=== PATIENT | female | born 1995 | race African-American/Black ===

== ENCOUNTER 2025-07-04 16:12 | Emergency (ER) | payer SELFPAY ==
--- OUTSIDE RECORDS SUMMARY | 2025-07-04 16:15 | XMS REPORT | Continuity of Care Document ---
Author Name Unknown Address [address] [phone] [facility] Address [address] [phone] Care Team Providers Care Metal Roofer Name Role Phone PCP, PATIENT DOES NOT HAVE A Primary Care Physic litzy Unavailable Venkat Chew Attending Clinician Unavailable Fortunato Choudhury Attending Clinician Unavailable Adama Goddard Attending Clinician Unavailable BESSY GREEN Attending Clinician Unavailable Physician, No Primary or Family Admitting Clinic litzy Unavailable Payers Payer Name Policy Type Policy Number Effective Date Expirati on Date Source Problems Condition Name Condition Details Condition Category Status Onset Date Resolution Date Last Treatment Date Treating Clinician Comments Source Abdominal pain Problem Active [facility] Anemia Problem Active [facility] Calculus of kidney Problem Active [facility] Dog bite Problem Active [facility] Low back pain Problem Active [facility] Sciatica Problem Active [facility] Allergies, Adverse Reactions, Alerts Allergy Name Allergy Type Status Severity Reaction(s) Onset Date Inactive Date Treating Clinician Comments Source No Known Allergie s DA Active U 02-14 00:00: 00 [facility] No Known Allergie s DA Active U 02-05 00:00: 00 [facility] No Known Drug Allergie s DA Active [facility] NO KNOWN ALLERGIE S Drug Class Active [facility] Social History Social Habit Start Date Stop Date Quantity Comments Source History of tobacco use [facility] Sex Assigned At 1995 00:00:00 1995 00:00:[address] [facility] Smoking Status Start Date Stop Date Source Current some day smoker 2024-08-09 22:40:00 [facility] Medications Ordered Medication Name Filled Medication Name Start Date Stop Date Current Medication? Ordering Clinician Indication Dosage Frequency Signature (SIG) Comments Components Source Cyclobenzap rine Hcl (Flexeril) 5 Mg TABLET Cyclobenzap rine Hcl (Flexeril) 5 Mg TABLET 2023-09 22:56: 00 Yes [address] [facility] Docusate Sodium Docusate Sodium 02-05 03:36: [address] [facility] Vital Signs Vital Name Observation Time Observation Value Comments S ource Oxygen saturation by Pulse oximetry 2024-08-09 23:18:00 98 /min [facility] BP Diastolic 2024-08-09 23:18:00 91 mm[Hg] [facility] Height 2024-08-09 22:40:00 177.398910 cm [facility] Weight 2024-08-09 22:40:00 158.677652 kg [facility] BMI (Body Mass Index) 2024-08-09 22:40:00 50.1 kg/m2 [facility] Oxygen saturation by Pulse oximetry 2024-06-25 14:15:00 97 /min [facility] Height 2024-06-25 14:15:00 177.724923 cm [facility] Weight 2024-06-25 14:15:00 161.595939 kg [facility] BMI (Body Mass Index) 2024-06-25 14:15:00 51.1 kg/m2 [facility] Oxygen saturation by Pulse oximetry 2023-02-05 03:55:00 98 /min [facility] BP Diastolic 2023-02-05 03:55:00 72 mm[Hg] [facility] Height 2023-02-05 01:02:00 177.248489 cm [facility] Weight 2023-02-05 01:02:00 129.941112 kg [facility] BMI (Body Mass Index) 2023-02-05 01:02:00 41.0 kg/m2 [facility] Encounters Start Date/Time End Date/Time Encounter Type Admission Type Attending [facility] Facility Care Department Encounter ID Source 2023-02-04 23:55:00 Inpatient [facility] [id number] [facility] 2024-08-09 22:56:00 2024-08-09 23:21:00 Departed Emergency Room [facility] [id number] [facility] 2024-08-09 21:56:00 2024-08-09 22:21:00 Emergency [facility] [id number] [facility] 2024-06-25 14:23:00 2024-06-25 14:59:00 Departed Emergency Room [facility] [id number] 62 [facility] 2024-06-25 13:23:00 2024-06-25 13:59:00 Emergency [facility] [id number] [facility] 2023-02-05 01:01:00 2023-02-05 03:55:00 Departed Emergency Room 1 Venkat Chew [facility] [id number] [facility] 2023-02-05 00:01:00 2023-02-05 02:55:00 Emergency [facility] [id number] [facility] 2022-02-14 09:52:00 2022-02-14 10:26:00 Emergency EM Fortunato Choudhury [facility] [id number] [facility] 2022-02-14 09:52:00 2022-02-14 10:26:00 Emergency EM Fortunato Choudhury [facility] KRISTEN [id number] 83 [facility] 2022-02-05 14:09:00 2022-02-05 19:50:00 Emergency EM Adama Goddard [facility] KRISTEN [id number] 91 [facility] 2022-02-05 14:09:00 2022-02-05 19:50:00 Emergency EM Adama Goddard [facility] [id number] [facility] 2016-06-26 16:08:19 2016-06-26 18:45:00 Emergency X BESSY GREEN [facility] ERT [id number] [facility] Results Test Description Test Time Test Comments Results Resul t Comments Source CT ABD/PEL WO CONTRAST-HOPD 2023-02-05 02:15:00 [facility] 1995 Sex: F [place] [address] Patient Name: JOSE SOTO MR #: [id number] : 1995 Age/Sex: 28/F Req #: [id number] Adm Physician: Ordered by: Venkat Chew MD Report #: [id number] Location: [facility] Room/Bed: Report: Diagnostic Imaging Report Status: Signed Procedure: [id number] HOPD/CT ABD/PEL WO CONTRAST-HOPD Exam Date: 02/05/23 Exam Time: 46 TECHNIQUE: CT of the abdomen and pelvis WITHOUT intravenous contrast and WITHOUT oral contrast. Dosemodulation, iterative reconstruction, and/or weight-based adjustment of the mA/kV was utilized to reduce the radiation dose to as low as reasonably achievable. INDICATION: Right-sided abdominal pain. COMPARISON: None. FINDINGS: ABSENCE OF INTRAVENOUS CONTRAST DECREASES SENSITIVITY FOR DETECTION OF FOCAL LESIONS AND VASCULAR PATHOLOGY. LOWER THORAX: Unremarkable. HEPATOBILIARY: No focal hepatic lesions. Gallbladder is unremarkable. No biliary ductal dilatation. SPLEEN: No splenomegaly. PANCREAS: No focal masses or ductal dilatation. ADRENALS: No adrenal nodules. KIDNEYS/URETERS: There is a nonobstructing 0.2 cm calculus in the lower pole right kidney. No hydroureteronephrosis . No exophytic mass. PELVIC ORGANS/BLADDER: Unremarkable. PERITONEUM/RETROPERIT ONEUM: No free air or fluid. LYMPH NODES: No lymphadenopathy. VESSELS: Unremarkable. GI TRACT: No distention or wall thickening. Partially seen appendix is normal. No secondary signs of appendicitis. BONES AND SOFT TISSUES: No acute osseous abnormality. Soft tissues are unremarkable. IMPRESSION: No acute abnormality on CT of the abdomen and pelvis without contrast. No obstructive uropathy. Nonobstructing 0.2 cm calculus in the lower pole of the right kidney. Signed by: Fidel Sexton on 02/05/2023 2:15 AM Dictated By: FIDEL SEXTON MD 6 Transcribed By: PSCRIDUSTIN on 02/05/23214 COPY TO: VENKAT CHEW MD - XR L-SPINE 2/3 VIEWS 2022-02-05 00:00:00 [facility] 1995 Sex: F FAX: Alex Koch NP [phone] [place]: St: REG Name: JOSE SOTO [facility] : 1995 Age/S: 27/F [address] [place] [address] Bl Unit #: [id number] Loc: [place] [address] Phys: Alex Patino NP Acct: [id number] Dis Date: Status: REG ER PHONE #: [phone] Exam Date: 02/05/20221650 FAX #: [phone] Reason: LUMBAR PAIN EXAMS: CPT CODE: [id number] XR L-SPINE 2/3 VIEWS 48685 PROCEDURE INFORMATION: Exam: XR Lumbosacral Spine Exam date and time: 02/05/2022 4:40 PM Age: 27 years old Clinical indication: Low back pain; Additional info: Lumbar pain TECHNIQUE: Imaging protocol: XR of the lumbosacral spine. Views: 2 or 3 views. COMPARISON: No relevant prior studies available. FINDINGS: The disc space heights are normal. There are no acute abnormalities of alignment. There is no radiographic evidence of acute fracture. There are no gross lytic or blastic lesions in the bones. There is no bony narrowing of the spinal canal. IMPRESSION: 1. There is no radiographic evidence of acute disease. 2. If there is continued clinical concern, then cross-sectional imaging correlation may be of value because they are more accurate modalities. at 1703 Reported and signed by: Wilmar Awan M.D. CC: Alex Patino NP Technologist: RT Bee(R) Trnscrd Date/Time/By: 02/05/2022 (5320) : By: [email or web address] Orig Print D/T: S: 02/05/2022 (1405) PAGE 1 Signed Report Notes Date/Time Note Provider Source 2022-02-14 10:12:00 ([facility]) EMERGENCY PROVIDER REPORT REPORT#:[id number] REPORT STATUS: Signed DATE:02/14/22 TIME: 101 PATIENT: JOSE SOTO UNIT #: [id number] ROOM/BED: AGE: 27 SEX: F PCP PHYS: No Primary or Family Physician SERVICE AUTHOR: Felix Amato HAND TOOL FILER * ALL edits or amendments must be made on the electronic/computer document * Felix Amato 02/14/22 1012: HPI-Back Pain Under 40 Free Text HPI Notes Free Text HPI Notes 27-year-old female presents complaint of low back pain. States that she was seen here 10 days ago for the same but that the symptoms have continued. Reports that the medication that was prescribed works but only for short period and then the pain returns. Has not attempted stretching but was questioning on whether it would help. Does not currently have a PCP and denies any significant past medical history. General Confirmed Patient Yes Initial Greet Date/Time 02/14/22 0958 Presentation Chief Complaint Pain, lumbar )( Sudden in Onset? Yes Review of Systems ROS Statements All systems rev neg except as marked. Focused Review of Systems Musculoskeletal Reports: Lumbar pain. Past Medical History - Adult Stated Complaint LOW BACK PAIN Allergies Coded Allergies: No Known Allergies (02/14/22) Home Medications Active Scripts CYCLOBENZAPRINE (FLEXERIL) 10 MG PO Q8H PRN PRN MUSCLE SPASMS/PAIN CYCLOBENZAPRINE (FLEXERIL) 10 MG PO Q8H PRN PRN MUSCLE SPASMS/PAIN #15 TABS Prov: 02/05/22 NAPROXEN EC (NAPROSYN-EC) 500 MG PO BID PRN PRN PAIN NAPROXEN EC (NAPROSYN-EC) 500 MG PO BID PRN PRN PAIN #20 TABS Prov: 02/05/22 Calculated Suicide Risk (nurs) No risk Smoking status: Smoking status for patients 13 years old or older: Unknown,if ever smoked Physical Exam Vital Signs Vital Signs First Documented: Result Date Time Pulse Ox 100 02/14 1002 B/P 108/70 02/14 1002 B/P Mean 82 02/14 1002 O2 Delivery Room air 02/14 1002 Temp 97.9 02/14 1002 Pulse 85 02/14 1002 Resp 18 02/14 1002 Last Documented: Result Date Time Pulse Ox 100 02/14 1002 B/P 108/70 02/14 1002 B/P Mean 82 02/14 1002 O2 Delivery Room air 02/14 1002 Temp 97.9 02/14 1002 Pulse 85 02/14 1002 Resp 18 02/14 1002 Review of Vital Signs Reviewed Free Text PE Notes Free Text PE Notes Physical Exam General/Const General/Const Awake, Alert, No acute distress, morbidly obese MS Head Head Atraumatic, Normocephalic Eyes Eyes Atraumatic, PERRL Ears/Nose/Throat Ears/Nose/Throat Atraumatic, Airway patent, Mucous membranes moist MS Neck Neck Atraumatic, Supple Resp/Chest Respiratory/Chest Atraumatic, No respiratory distress MS Back Back Atraumatic, tenderness over the left lower lumbar paraspinal muscle into the left SI joint Skin Skin Atraumatic, Color NL, No rash Neurologic Neurologic Oriented X3, Speech NL Psychiatric Psychiatric Affect NL, Mood NL Re-Evaluation MDM Re-Evaluation/Progress Re-Evaluation/Progress Text/Dict Note We will Rx medication for symptom relief and advised she will need to obtain a PCP but given other information such as care coordination manager and PM R. ED Course Medication(s) Ordered Medication(s) Ordered: Central Nervous System Agents Sig/Sapna Start time Last Medication Dose Route Stop Time Status Admin Hydrocodone Bitart/ 1 TAB X1ED STA 02/14 1005 CAN Acetaminophen PO 02/14 1006 Patient Discharge Departure Vital Signs/Condition Vital Signs First Documented: Result Date Time Pulse Ox 100 02/14 1002 B/P 108/70 02/14 1002 B/P Mean 82 02/14 1002 O2 Delivery Room air 02/14 1002 Temp 97.9 02/14 1002 Pulse 85 02/14 1002 Resp 18 02/14 1002 Last Documented: Result Date Time Pulse Ox 100 02/14 1002 B/P 108/70 02/14 1002 B/P Mean 82 02/14 1002 O2 Delivery Room air 02/14 1002 Temp 97.9 02/14 1002 Pulse 85 02/14 1002 Resp 18 02/14 1002 All vital signs available at the time of this entry have been reviewed. Condition Improved Clinical Impression Clinical Impression Primary Impression: Sciatica Disposition Decision Discharge )( Discharged to Home Yes )( Time 1015 )( Date 02/14/22 Discharge/Care Plan Counseled Regarding Diagnosis, Prescriptions, Need for follow-up, When to return to ED (Auto) Prescriptions Current Visit Scripts LIDOCAINE (LIDODERM 5%) 1 PATCH TRANSDERM DAILY LIDOCAINE (LIDODERM 5%) 1 PATCH TRANSDERM DAILY #30 PATCHES DICLOFENAC SODIUM (DICLOFENAC SODIUM 1%) 1 APPLIC TOPICAL QID DICLOFENAC SODIUM (DICLOFENAC SODIUM 1%) 1 APPLIC TOPICAL QID #100 GM Patient Instructions ED Sciatica Referrals Provider Referral: Ian Villavicencio MD Follow-Up: Call for appointment Address: [address] [place] [address] Provider Referral: Eros Srinivasan MD Follow-Up: Call for appointment Address: [address] [place] [address] Departure Forms [place] PCP LIST Discharge Note I have spoken with the patient and/or caregivers. I have explained the patient's condition, diagnoses and treatment plan based on the information available to me at this time. I have answered the patient's and/or caregiver's questions and addressed any concerns. The patient and/or caregivers have as good an understanding of the patient's diagnosis, condition and treatment plan as can be expected at this point. The vital signs have been stable. The patient's condition is stable and appropriate for discharge from the emergency department. The patient will pursue further outpatient evaluation with the primary care physician or other designated or consulting physician as outlined in the discharge instructions. The patient and/or caregivers are agreeable to this plan of care and follow-up instructions have been explained in detail. The patient and/or caregivers have received these instructions in written format and have expressed an understanding of the discharge instructions. The patient and/or caregivers are aware that any significant change in condition or worsening of symptoms should prompt an immediate return to this or the closest emergency department or a call to 911. Fortunato Choudhury. 02/14/22 1021: Patient Discharge Departure Supervising Physician Note MidLv Saw Pt Alone I have reviewed the PA/HAND TOOL FILER's note and plan of care. I was available for consultation as needed at all times during the patient's visit in the emergency department. I agree with the clinical impression, plan and disposition. at 1021 at 1036 [facility] #:[id number] END OF REPORT [facility] 2022-02-05 15:34:00 ([facility]) EMERGENCY PROVIDER REPORT REPORT#:[id number] REPORT STATUS: Signed DATE:02/05/22 TIME: 1533 PATIENT: JOSE SOTO UNIT #: [id number] ROOM/BED: AGE: 27 SEX: F PCP PHYS: No Primary or Family Physician SERVICE AUTHOR: Alex Patino HAND TOOL FILER * ALL edits or amendments must be made on the electronic/computer document * Alex Patino 02/05/22 1534: HPI-Back Pain Under 40 General Initial Greet Date/Time 02/05/22 1420 Provider in Triage Greet Note I have greeted and performed a focused rapid initial assessment of this patient. A comprehensive ED assessment and evaluation of the patient, analysis of all test results, and completion of the medical decision-making process will be conducted by additional ED providers. MSE Not Complete The medical screening exam is not complete. Further evaluation and/or treatment is required. The patient will be re-directed to the emergency department. Free Text HPI Notes Free Text HPI Notes This 27-year-old female presents to ED with complaint of bilateral lumbar pain that radiates down the left leg to posterior thigh. Is exacerbated by lumbar extension. Denies known injury but does report that she lifts quite often at work. Reports pain began gradually last week but has worsened in the previous 2 to 3 days. Denies associated symptoms. KDA Past Medical History - Adult Stated Complaint BACK PAIN Allergies Coded Allergies: No Known Allergies (02/05/22) Smoking status: Smoking status for patients 13 years old or older: Never Smoker Physical Exam Vital Signs Vital Signs First Documented: Result Date Time Pulse Ox 98 02/05 1416 B/P 142/81 02/05 1416 B/P Mean 101 02/05 1416 O2 Delivery Room air 02/05 1416 Temp 36.2 02/05 1416 Pulse 89 02/05 1416 Resp 16 02/05 1416 Last Documented: Result Date Time Pulse Ox 98 02/05 1416 B/P 142/81 02/05 1416 B/P Mean 101 02/05 1416 O2 Delivery Room air 02/05 1416 Temp 36.2 02/05 1416 Pulse 89 02/05 1416 Resp 16 02/05 1416 Free Text PE Notes Free Text PE Notes Patient is AAOx3, ambulatory. NAD noted at this time. There is mild bilateral TTP to lumbar area. Re-Evaluation MDM ED Course Medication(s) Ordered Medication(s) Ordered: Autonomic Drugs Sig/Sapna Start time Last Medication Dose Route Stop Time Status Admin Cyclobenzaprine HCl 10 MG X1ED STA 02/05 1737 DC PO 02/05 1738 Central Nervous System Agents Sig/Sapna Start time Last Medication Dose Route Stop Time Status Admin Hydrocodone Bitart/ 1 TAB X1ED STA 02/05 1538 DC / Acetaminophen PO 02/05 1539 1606 Eye, Ear, Nose And Throat (Een Sig/Sapna Start time Last Medication Dose Route Stop Time Status Admin Dexamethasone Sodium 8 MG X1ED STA 02/05 1804 DC Phosphate IM 02/05 1805 Patient Discharge Departure Vital Signs/Condition Vital Signs First Documented: Result Date Time Pulse Ox 98 02/05 1416 B/P 142/81 02/05 1416 B/P Mean 101 02/05 1416 O2 Delivery Room air 02/05 1416 Temp 36.2 02/05 1416 Pulse 89 02/05 1416 Resp 16 02/05 1416 Last Documented: Result Date Time Pulse Ox 98 02/05 1416 B/P 142/81 02/05 1416 B/P Mean 101 02/05 1416 O2 Delivery Room air 02/05 1416 Temp 36.2 02/05 1416 Pulse 89 02/05 1416 Resp 16 02/05 1416 All vital signs available at the time of this entry have been reviewed. Macey Gonzales 02/05/22 1840: HPI-Back Pain Under 40 General Confirmed Patient Yes Presentation Chief Complaint Pain, lumbar Hx Obtained From Patient )( Sudden in Onset? No Free Text HPI Notes Free Text HPI Notes Agree with HPI above. Patient reports about 1 week ago she woke up and noticed pain to bilateral lumbar region that radiates to bilateral gluteus muscles. She notes today she attempted to stretch but feels as though it worsened her symptoms. 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 She has attempted [id number] Motrin with no relief. Denies any fever, flank pain, trauma to area or fall, abdominal pain, dysuria, hematuria, urinary frequency or urgency, bowel changes, incontinence, saddle anesthesia, numbness or tingling to bilateral lower extremities, or any other symptoms at this time. Past Medical History - Adult Pt reports no significant: Past medical history, Past surgical history Physical Exam Focused PE General/Const General/Const Awake, Alert, No acute distress, Well appearing, Well developed , Well hydrated, Well nourished, Cooperative, Not toxic appearing MS Neck Neck Atraumatic, Supple, Full range of motion, No swelling, Non-tender, No midline vertebral tend Resp/Chest Respiratory/Chest Breath sounds NL, No respiratory distress, No rales, No rhonchi, No wheezing Cardiovascular Cardiovascular Heart rate NL, Regular rhythm, Heart sounds NL, Peripheral circulation NL Abdomen/GI Abdomen/GI Soft, Non-tender, No guarding, No rebound MS Back Back No midline vertebral tend, No CVA tenderness Text/Dict Notes BL lower lumbar tenderness and gluteal tenderness. No midline vertebral spinal tenderness. MS Lower Extrem Lower Ext/Pelvis/MS Inspection NL, No swelling, Non-tender, No erythema, No deformity, Neurologic intact, Vascular intact Neurologic Neurologic Oriented X3, Speech NL Additional PE Skin Skin Warm, Dry, Intact Interpretation Diagnostics Lab Results Interpretation Results Recent Impressions: RADIOLOGY - XR L-SPINE 2/3 VIEWS 02/05 1651 Report Impression - Status: SIGNED Entered: 02/05/2022 1703 IMPRESSION: 1. There is no radiographic evidence of acute disease. 2. If there is continued clinical concern, then cross-sectional imaging correlation may be of value because they are more accurate modalities. Impression By: [email or web address] - Wilmar Awan M.D. Imaging Statement Radiographic studies reviewed and considered in the medical decision-making. Patient Discharge Departure Pt/Provider Handoff Handoff Note This patient's care has been transferred to and accepted by [ Aga - EDUARD @ 6510]. We discussed: the patient's chief complaint; labs and imaging that have been completed and those that are still pending; procedures that have been completed and those remaining to be done; any treatment provided and the patient's response to treatment; any significant change in condition; input from consultants if any; the treatment plan prior to the transfer of care. The accepting physician will follow up on all pending labs and imaging and make any necessary changes to the current impression and/or treatment plan. The accepting physician is now responsible for the patient's care and final disposition. Aga Loaiza 02/05/221858: HPI-Back Pain Under 40 Presentation Location Paraspinal lumbar Quality Painful Radiation Leg L, above knee. Migration/Movement None Severity: Onset Moderate Severity: Current Severe Risk-Back Pain Under 40 Risk Stratification Thoracic Aortic Dissection Risk factors reviewed Epidural Hematoma Risk factors reviewed Epidural Abscess Risk factors reviewed Review of Systems Focused Review of Systems Constitutional Denies: Chills, Fever, Lethargy. Respiratory Denies: Cough, non-productive, Cough, productive, Shortness of breath. Cardiovascular Denies: Chest pain, Syncope. GI Denies: Abdominal pain, Diarrhea, Nausea, Vomiting. Female Denies: Dysuria, Flank pain, Pelvic pain. Musculoskeletal Reports: Back pain, Extremity pain. Hematologic Denies: Bleeding, Bruising. Neurologic Denies: Bladder dysfunction, Bowel dysfunction, Change LOC, Dizziness, Focal weakness, Generalized weakness, Headache, Lightheaded, Numbness, Slurred speech, Tingling. Additional Review of Systems Psychiatric Denies: Change mental status, Confusion, Depression, Suicidal ideation. Past Medical History - Adult Review of Nursing Notes Rev avail, and agree Pt reports no significant: Past medical history, Past surgical history Physical Exam Vital Signs Review of Vital Signs Reviewed, Vital signs normal Focused PE General/Const General/Const Awake, Alert, Well appearing MS Neck Neck Atraumatic, Supple, No meningismus, Full range of motion, No swelling, Non-tender, No midline vertebral tend, No masses, No crepitus Resp/Chest Respiratory/Chest Breath sounds NL, Breath sounds = bilat, No respiratory distress, No rales, No rhonchi, No wheezing Cardiovascular Cardiovascular Heart rate NL, Regular rhythm, Heart sounds NL, Peripheral circulation NL Abdomen/GI Abdomen/GI Soft, Non-tender, No guarding, No rebound MS Lower Extrem Lower Ext/Pelvis/MS Inspection NL, No swelling, Non-tender, No erythema, No deformity, Neurologic intact, Vascular intact, No edema, Gait NL Neurologic Neurologic Oriented X3, Speech NL, No motor deficits, No sensory deficits, Reflexes equal bilat, Memory NL, Gait NL Additional PE MS Head Head Atraumatic, Normocephalic Skin Skin Atraumatic, Color NL, No rash, Warm, Dry, Intact, Turgor NL Psychiatric Psychiatric Affect NL, Mood NL, Not suicidal, Cognitive function NL, Judgment /insight NL, Thought content NL Interpretation Diagnostics Lab Results Interpretation Imaging Statement Radiographic studies reviewed and considered in the medical decision-making. Re-Evaluation MDM Re-Evaluation/Progress Re-Evaluation/Progress Time of Re-Eval 1906 Re-Eval Status Improved Eval Following Treatment Pt. feels better, Condition improved Pain Re-Evaluation Pain improved Exam Post Tx - General Active, Alert, Appears non-toxic, Appears well, Vital signs stable, Capillary refill normal, Hydration normal Exam Post Tx - Sys Review Lungs clear, Abdomen soft, Abdomen nontender Plan Post Re-Eval Plan discharge Back Pain MDM Note The patient presented with acute back pain. The patient is now resting comfortably and feels better, is alert, talkative, interactive and in no distress. The repeat examination is unremarkable and benign. The patient is neurologically intact and is ambulatory in the ED. The patient has no fever, no bowel or bladder incontinence, no saddle anesthesia, and is otherwise alert and well-appearing. The history, physical examination, and diagnostics (if any) do not suggest the presence of acute spinal epidural abscess, acute spinal epidural bleed, cauda equina syndrome, abdominal aortic aneurysm, aortic dissection or other process requiring further testing, treatment or consultation in the emergency department. The vital signs have been stable. The patient's condition is stable and appropriate for discharge. The patient will pursue further outpatient evaluation with the primary care physician or other designated or consulting physician as indicated in the discharge instructions. TAD MDM Note There is no historical, physical exam, laboratory or imaging data that would suggest a need to consider or further evaluate the patient for thoracic aortic dissection at this time. I am no longer considering thoracic aortic dissection in the differential diagnosis. The timing of the onset of pain and the pain radiation pattern are not consistent with dissection. There has been no movement of pain from the chest to the back or to the abdomen, which would be consistent with a dissection process. The analysis of risks that would predispose to dissection does not indicate a need to further pursue the diagnosis. The patient 's vital signs have been stable, there is no apparent aortic murmur, and there is either 1) no gross radial pulse differential and/or 2) no significant blood pressure differential between the right and left arms. In addition, the laboratory and imaging results are not consistent with aortic dissection. In particular, the chest x-ray does not meet any of the criteria for aortic dissection. Patient Discharge Departure Vital Signs/Condition Condition Stable, Improved Clinical Impression Clinical Impression Primary Impression: Back pain Disposition Decision Discharge )( Discharged to Home Yes )( Time 190 )( Date 02/05/22 Discharge/Care Plan Counseled Regarding Diagnosis, Imaging studies, Prescriptions, Need for follow- up, When to return to ED (Auto) Prescriptions Current Visit Scripts CYCLOBENZAPRINE (FLEXERIL) 10 MG PO Q8H PRN PRN MUSCLE SPASMS/PAIN CYCLOBENZAPRINE (FLEXERIL) 10 MG PO Q8H PRN PRN MUSCLE SPASMS/PAIN #15 TABS NAPROXEN EC (NAPROSYN-EC) 500 MG PO BID PRN PRN PAIN NAPROXEN EC (NAPROSYN-EC) 500 MG PO BID PRN PRN PAIN #20 TABS Prescriptions Reviewed Risks, Benefits, Alternative treatment Patient Instructions ED Back and Neck Pain, General, ED Back Exercises, Lumbar, ED Back Sprain/Strain Discharge Note I have spoken with the patient and/or caregivers. I have explained the patient's condition, diagnoses and treatment plan based on the information available to me at this time. I have answered the patient's and/or caregiver's questions and addressed any concerns. The patient and/or caregivers have as good an understanding of the patient's diagnosis, condition and treatment plan as can be expected at this point. The vital signs have been stable. The patient's condition is stable and appropriate for discharge from the emergency department. The patient will pursue further outpatient evaluation with the primary care physician or other designated or consulting physician as outlined in the discharge instructions. The patient and/or caregivers are agreeable to this plan of care and follow-up instructions have been explained in detail. The patient and/or caregivers have received these instructions in written format and have expressed an understanding of the discharge instructions. The patient and/or caregivers are aware that any significant change in condition or worsening of symptoms should prompt an immediate return to this or the closest emergency department or a call to 911. Adama Goddard 02/08/22 1823: Patient Discharge Departure Supervising Physician Note MidLv Saw Pt Alone I have reviewed the PA/HAND TOOL FILER's note and plan of care. I was available for consultation as needed at all times during the patient's visit in the emergency department. I agree with the clinical impression, plan and disposition. at 1925 at [phone] at 1823 at [phone] RPT #:[id number] END OF REPORT [facility]
[2025-07-04 17:22] LABS: Sqamous Epithelial <5 /HPF (None Seen); Urine Culture Reflex Order NOT NEEDED; Urine Microscopic Reflex YN ORDER UMIC
[2025-07-04 17:37] LABS: Influenza A Ag Negative; Influenza B Ag Negative; SARS-CoV-2 Antigen Rapid Res Negative (Negative)
[2025-07-04] MEDS ORDERED: BENZONATATE 100 MG CAP PO ONE (17:38)
--- NOTE | 2025-07-04 18:24 | RAD REPORT ---
EXAMINATION: TWO VIEW CHEST XR CLINICAL INDICATION: Female, 30 years old. [facility] MAIN COUGH Bed Name: TECHNIQUE: 2 view radiographs of the chest were performed. COMPARISON: No prior exam. FINDINGS: The lungs are well inflated and clear. No pneumothorax or sizable effusion. The heart is normal in si ze. Mediastinal contours are unremarkable. IMPRESSION: No acute or significant abnormalities.
--- NOTE | 2025-07-04 18:43 | EDPHYS ---
Physician Documentation [facility] Name: Wm Carranza Age: 30 yrs Sex: Female : 1995 Arrival Date: 07/04/2025 Time: 16:12 Bed 23 Private MD: ED Physician Wei Bartlett HPI: 07/04 17:40 This 30 yrs old Black Female presents to ER via Ambulatory with complaints of Cough. cp 17:40 The patient or guardian reports cough, that is intermittent. Onset: The cp symptoms/episode began/occurred 1.5 month(s) ago. 17:40 Severity of symptoms: in the emergency department the symptoms are unchanged, despite cp home interventions. Associated signs and symptoms: Pertinent positives: sore throat, Pertinent negatives: diarrhea, fever, vomiting. Historical: - Allergies: 16:40 No Known Allergies; ll1 - PMHx: 16:47 None; ll1 - PSHx: 16:47 None; ll1 - Immunization history:: Adult Immunizations up to date. - Infectious Disease History:: Denies. - Social history:: Smoking status: Patient reports the use of cigarette tobacco products, denies chronic smoking, but will smoke occasionally, smokes .1 packs per day, Reported history of juuling and/or vaping. ROS: 17:45 Constitutional: Negative for body aches, fever, poor PO intake, cp 17:45 Eyes: Negative for injury, pain, redness, and discharge, cp 17:45 ENT: Positive for sore throat, Negative for drainage from ear(s), ear pain, difficulty swallowing, difficulty handling secretions, 17:45 Cardiovascular: Negative for chest pain, palpitations, 17:45 Respiratory: Positive for cough, Negative for shortness of breath, wheezing, 17:45 Abdomen/GI: Negative for abdominal pain, vomiting, diarrhea, constipation, 17:45 Neuro: Negative for altered mental status, dizziness, headache, weakness, 17:45 All other systems are negative, Exam: 17:50 Constitutional: The patient appears in no acute distress, alert, awake, non-toxic, well cp developed, well nourished, obese, 17:50 Head/Face: Normocephalic, atraumatic. cp 17:50 Eyes: Periorbital structures: appear normal, Conjunctiva: normal, no exudate, no injection, Sclera: no appreciated abnormality, Lids and lashes: appear normal, bilaterally, 17:50 ENT: External ear(s): are unremarkable, Ear canal(s): are normal, clear, TM's: dullness, bilaterally, Nose: is normal, Mouth: Lips: moist, Oral mucosa: moist, Posterior pharynx: Airway: no evidence of obstruction, patent, Tonsils: no enlargement, no exudate, erythema, that is mild, exudate, is not appreciated, 17:50 Neck: ROM/movement: is normal, is supple, no meningismus, no nuchal rigidity, 17:50 Chest/axilla: Inspection: normal, 17:50 Cardiovascular: Rate: tachycardic, Rhythm: regular, 17:50 Respiratory: the patient does not display signs of respiratory distress, Respirations: normal, no use of accessory muscles, no retractions, labored breathing, is not present, Breath sounds: bronchial sounds, that are mild, are heard diffusely, stridor, is not appreciated, wheezing: is not appreciated, 17:50 Abdomen/GI: Inspection: abdomen appears normal, Palpation: abdomen is soft and non-tender, in all quadrants, 17:50 Back: CVA tenderness, is absent, 17:50 Neuro: Orientation: to person, place \T\ time. Mentation: is normal, Motor: moves all fours, strength is normal, Vital Signs: 16:46 BP 128 / 60; Pulse 100; Resp 18; Temp 98.6; Pulse Ox 100% ; Weight 102.51 kg; Height 5 ll1 ft. 9 in. ; Pain 7/10; 18:51 BP 124 / 72; Pulse 74; Resp 18; Pulse Ox 100% on R/A; mb9 16:46 Body Mass Index 33.37 (102.51 kg, 175.26 cm) ll1 16:46 Pain Scale: Adult ll1 MDM: 16:40 Medical Screening Exam initiated 17:40 Differential Diagnosis: Bronchitis Influenza Otitis Media Viral Syndrome Pneumonia cp Other strep throat, COVID-19. 18:42 Data reviewed: vital signs, nurses notes, lab test result(s), radiologic studies, plain cp films, and as a result, I will discharge patient. 18:42 I considered the following discharge prescriptions or medication management in the emergency department Medications were administered in the Emergency Department. See MAR. Independent interpretation of the following test(s) in the Emergency Department X-Ray: My interpretation is chest images negative for focal pneumonia. Test considered but Not performed: Labs: cbc, cmp. Counseling: I had a detailed discussion with the patient and/or guardian regarding the historical points, exam findings, and any diagnostic results supporting the discharge/admit diagnosis, lab results, radiology results, to return to the emergency department if symptoms worsen or persist or if there are any questions or concerns that arise at home. Response to treatment: the patient's symptoms have mildly improved after treatment, and as a result, I will discharge patient. 07/04 17:06 Order name: Group A Streptococcus Rapid; Complete Time: 17:33 cp 07/04 17:06 Order name: Test, Urine; Complete Time: 17:33 cp 07/04 17:33 Interpretation: Reviewed. 07/04 17:06 Order name: UA Rfx Franklin Cult if indicated; Complete Time: 17:33 07/04 17:06 Order name: COVID-19 Ag + Flu A+B Ag 07/04 17:32 Order name: Throat Culture EDMA 07/04 17:06 Order name: XRAY Chest Pa And Lat (2 Views) cp Administered Medications: 17:39 Drug: Tessalon Perle PO 200 mg PO once Route: PO; mb9 18:23 Follow up: Response: No adverse reaction mb9 Disposition Summary: 07/04/25 18:43 Discharge Ordered Notes: Location: Home cp Problem: new cp Symptoms: have improved cp Condition: Stable cp Diagnosis - Acute bronchitis, unspecified cp - Acute pharyngitis, unspecified cp Followup: cp - With: Private Physician - When: 2 - 3 days - Reason: Worsening of condition Discharge Instructions: - Acute Bronchitis, Adult cp - Pharyngitis cp - Discharge Summary Sheet mb9 Forms: - Medication Reconciliation Form cp - Antibiotic Education cp - Prescription Opioid Use cp - Patient Portal Instructions cp - Leadership Thank You Letter cp - Work release form mb9 Prescriptions: - Bromfed DM 2-30-10 mg/5 mL Oral syrup - administer 10 milliliter ORAL route every 8 hours as needed for cold symptoms; cp 240 milliliter; Refills: 0, Product Selection Permitted - albuterol sulfate 90 mcg/actuation Inhalation HFA Aerosol Inhaler - inhale 1 puff INHALATION route every 4 to 6 hours as needed for shortness of cp breath or wheezing; 1 unit; Refills: 0, Product Selection Permitted - Zithromax Z-Angel 250 mg Oral Tablet - take 1 tablet ORAL route as directed for 5 days Day 1 - take two (2) tablets cp one time. Day 2, 3, 4 , 5 take one (1) tablet once daily.; 6 tablet; Refills: 0, Product Selection Permitted Addendum: 07/07/2025 07:25 Co-signature as Attending Physician, Wei Bartlett MD I agree with the assessment and c mcnally plan of care. Signatures: Dispatcher [employer] EDMA Wei Bartlett MD MD cha Page, Corey, PA-C PA-C Ambrocio Schuster RN RN ll1 Yas Church RN RN mb9 Corrections: (The following items were deleted from the chart) 07/04 16:47 16:47 PSHx: Unable to Obtain; ll1 ll1 17:07 17:06 Group A Streptococcus Rapid Sc+I.LAB.BRZ ordered. EDMS EDMS 17:07 17:06 Test, Urine+UC.LAB.BRZ ordered. EDMS EDMS 17:07 17:06 UA Rfx Franklin Cult if indicated+U.LAB.BRZ ordered. EDMS EDMS 17:07 17:06 COVID-19 Ag + Flu A+B Ag+I.LAB.BRZ ordered. EDMS EDMS 17:07 17:07 Chest Pa And Lat (2 Views)+RAD.RAD.BRZ ordered. EDMS EDMS 07/05 15:50 07/04 17:00 Differential Diagnosis: Bronchitis Influenza Otitis Media Viral Syndrome cp Pneumonia Other strep throat, COVID-19 cp
--- NOTE | 2025-07-04 18:43 | ER ---
Nurse's Notes [facility] Name: Wm Carranza Age: 30 yrs Sex: Female : 1995 Arrival Date: 07/04/2025 Time: 16:12 Bed 23 Private MD: Diagnosis: Acute bronchitis, unspecified;Acute pharyngitis, unspecified Presentation: 07/04 16:46 Chief complaint: Patient states: Cough and congestion for 1.5 months. SOB and painful ll1 cough at times. [place] hot last night. Coronavirus screen: Client denies travel out of the [place] in the last 14 days. congestion, cough unrelated to allergies. Ebola Screen: Patient denies travel to an Ebola-affected area in the 21 days before illness onset. Initial Sepsis Screen: Does the patient meet any 2 criteria? No. Patient's initial sepsis screen is negative. Does the patient have a suspected source of infection? No. Patient's initial sepsis screen is negative. Risk Assessment: Do you want to hurt yourself or someone else? Patient reports no desire to harm self or others. Onset of symptoms was May 21, 2025. 16:46 Method Of Arrival: Ambulatory ll1 16:46 Acuity: JACQUES 3 ll1 Historical: - Allergies: 16:40 No Known Allergies; ll1 - PMHx: 16:47 None; ll1 - PSHx: 16:47 None; ll1 - Immunization history:: Adult Immunizations up to date. - Infectious Disease History:: Denies. - Social history:: Smoking status: Patient reports the use of cigarette tobacco products, denies chronic smoking, but will smoke occasionally, smokes .1 packs per day, Reported history of juuling and/or vaping. Screenin:45 [facility] ED Fall Risk Assessment (Adult) History of falling in the last 3 months, mb9 including since admission No falls in past 3 months (0 pts) Confusion or Disorientation No (0 pts) Intoxicated or Sedated No (0 pts) Impaired Gait No (0 pts) Mobility Assist Device Used No (0 pt) Altered Elimination No (0 pt) Score/Fall Risk Level 0 - 2 = Low Risk Oriented to surroundings, Maintained a safe environment, Educated pt \T\ family on fall prevention, incl call for assistance when getting out of bed. Abuse screen: Denies threats or abuse. Nutritional screening: No deficits noted. Tuberculosis screening: No symptoms or risk factors identified. Assessment: 17:17 General: Appears in no apparent distress. Behavior is calm, cooperative. Pain: Denies mb9 pain. Neuro: Level of Consciousness is awake, alert, obeys commands, Oriented to person, place, time, situation, Appropriate for age. Cardiovascular: Patient's skin is warm and dry. Respiratory: Reports cough that is pain with cough Airway is patent Respiratory effort is even, unlabored, Respiratory pattern is regular, symmetrical, Breath sounds are clear bilaterally. GI: No signs and/or symptoms were reported involving the gastrointestinal system. : No deficits noted. EENT: Reports nasal congestion nasal discharge. Derm: Skin is pink, warm \T\ dry. Musculoskeletal: Range of motion: intact in all extremities. 18:51 Reassessment: No changes from previously documented assessment. Patient and/or family mb9 updated on plan of care and expected duration. Pain level reassessed. Patient is alert, oriented x 3, equal unlabored respirations, skin warm/dry/pink. Vital Signs: 16:46 BP 128 / 60; Pulse 100; Resp 18; Temp 98.6; Pulse Ox 100% ; Weight 102.51 kg; Height 5 ll1 ft. 9 in. ; Pain 7/10; 18:51 BP 124 / 72; Pulse 74; Resp 18; Pulse Ox 100% on R/A; mb9 16:46 Body Mass Index 33.37 (102.51 kg, 175.26 cm) ll1 16:46 Pain Scale: Adult ll1 ED Course: 16:15 Patient arrived in ED. im 16:17 Wei Monetro PA-C is PHCP. cp 16:17 Wei Bartlett MD is Attending Physician. cp 16:40 Arm band placed on Patient placed in an exam room, on a stretcher. ll1 16:45 Yas Church RN is Primary Nurse. mb9 16:45 Placed in gown. Bed in low position. Call light in reach. Side rails up X 1. Provided mb9 Education on: press call light if needing anything. Client placed on continuous cardiac and pulse oximetry monitoring. NIBP monitoring applied. 16:47 Triage completed. ll1 17:17 No provider procedures requiring assistance completed. mb9 17:18 COVID-19 Ag + Flu A+B Ag Sent. mb9 17:18 UA Rfx Franklin Cult if indicated Sent. mb9 17:18 Test, Urine Sent. mb9 17:18 Group A Streptococcus Rapid Sent. mb9 17:40 XRAY Chest Pa And Lat (2 Views) In Process Unspecified. EDMS 18:51 Patient did not have IV access during this emergency room visit. mb9 Administered Medications: 17:39 Drug: Tessalon Perle PO 200 mg PO once Route: PO; mb9 18:23 Follow up: Response: No adverse reaction mb9 Medication: 16:51 VIS not applicable for this client. mb9 Outcome: 18:43 Discharge ordered by MD. cp 18:51 Discharged to home ambulatory, mb9 18:51 Condition: stable 18:51 Discharge instructions given to patient, Instructed on discharge instructions, follow up and referral plans. Demonstrated understanding of instructions, follow-up care, medications, Prescriptions given X 3, 18:51 Patient left the ED. mb9 Signatures: Dispatcher [employer] EDOR Wei Montero PA-C PA-C cp Lewis, Lynsay RN RN ll1 Yas Church RN RN mb9 Pauly Peterson Corrections: (The following items were deleted from the chart) 16:47 16:47 PSHx: Unable to Obtain; [facility]
[2025-07-04 19:55] VITALS: TEMP 98.6; O2SAT 100
[2025-07-04 19:56] VITALS: BP 124/72
== END 2025-07-04 18:51 | disposition home or self-care (01) ==
LOC: ER 16:12
DX: J20.9 Acute bronchitis, unspecified (principal); F17.210 Nicotine dependence, cigarettes, uncomplicated; Z11.52 Encounter for screening for COVID-19
CPT/HCPCS: 36415; 71046; 81001; 81025; 87070; 87428; 99284